=== PATIENT | male | born 1970 | race Caucasian/White ===

== ENCOUNTER → 2017-12-26 | Outpatient (CLI) | payer OTHER | LOC: M RAD 08:00 | DX: M54.2 Cervicalgia (principal) ==

== ENCOUNTER → 2019-12-26 | Outpatient (CLI) | payer OTHER ==
--- NOTE | 2019-12-27 01:36 | REP ---
Clinical: Cervical Technique: AP and lateral views of the cervical spine. Findings: Anterior fixation spans C4 - C7. Alignment is maintained. Mild degenerative changes at C3-4 with subtle endplate sclerosis and minimal marginal spurring. No acute fracture / compression injury or subluxation. Prevertebral soft tissues are normal. Impression: Anterior fixation. Minimal degenerative changes. Electronically Signed by Thomas Cowan MD 12/27/2019 01:27 A
== END ==
LOC: M WUC 09:55
PROVIDERS: ATTEND Physician Assistant
DX: M54.2 Cervicalgia (principal)

== ENCOUNTER 2020-07-28 09:59 | Emergency (ER) | payer OTHER, SELFPAY ==
[~2020-07-28] VITALS: Ht 175.3 cm; Wt 80.5 kg
[2020-07-28] MEDS ORDERED: METOCLOPRAMIDE 10 MG TAB PO ONE (11:00)
[2020-07-28] MEDS ORDERED: ACETAMINOPHEN 500 MG TAB PO ONE (11:00)
--- NOTE | 2020-07-28 11:11 | REP ---
INDICATION: fall, headache COMPARISON: None. TECHNIQUE: Axial noncontrast images from the skull base to the vertex with coronal reformations. This CT examination was performed using the following dose reduction techniques: Automated exposure control, adjustment of mA and/or kv according to the patient's size, and use of iterative reconstruction technique. FINDINGS: The ventricles, sulci, and cisterns are normal in position and appearance. Romero-white differentiation is maintained. No acute intracranial hemorrhage, mass/mass effect, pathology or trauma/injury. No evidence for acute infarction. No extra-axial fluid collection. Calvarium is intact. Mucoperiosteal changes involving the bilateral maxillary ethmoid and sphenoid sinuses suggests acute/chronic sinusitis. IMPRESSION: No evidence for acute intracranial pathology or trauma/injury. Sinusitis <Electronically signed by Thomas Cowan > 07/28/20 110
--- NOTE | 2020-07-28 11:12 | REP ---
INDICATION: fall, low back pain down into left leg. COMPARISON: None. TECHNIQUE: Axial noncontrast images of the lumbosacral spine from mid T12 through mid sacrum with coronal and sagittal reformations. This CT examination was performed using the following dose reduction techniques: Automated exposure control, adjustment of mA and/or kv according to the patient's size, and use of iterative reconstruction technique. FINDINGS: Alignment and lordosis maintained. Vertebral bodies are intact. Posterior elements and spinous processes are intact. There is no evidence for acute fracture/compression injury or subluxation. The spinal canal is patent. The paravertebral soft tissues are normal. Mild age-related degenerative changes noted. IMPRESSION: Age-appropriate lumbosacral spine CT. No evidence for acute fracture/compression injury or subluxation. <Electronically signed by Thomas Cowan > 07/28/20 1100
--- NOTE | 2020-07-28 11:14 | REP ---
INDICATION: fall, headache COMPARISON: 12/26/2019 TECHNIQUE: Axial noncontrast images from the skull base to the thoracic inlet with coronal and sagittal re-formations This CT examination was performed using the following dose reduction techniques: Automated exposure control, adjustment of mA and/or kv according to the patient's size, and use of iterative reconstruction technique. FINDINGS: Patient is noted to be status post anterior fixation at C4-C7. Alignment is maintained. There is no evidence for acute fracture/compression injury or subluxation. Moderate/early advanced multilevel degenerative changes include osteophytosis, endplate sclerosis and disc space narrowing at the C2-3, C3-4, and C7-T1 levels. Moderate facet arthropathy is also identified. Spinal canal appears patent. Paravertebral soft tissues are within normal limits. IMPRESSION: 1. Prior fixation at C4-C7. 2. No evidence for acute fracture/compression injury or subluxation. <Electronically signed by Thomas Cowan > 07/28/20 [id number]
[2020-07-28] MEDS ORDERED: MORPHINE 4 MG/ML 1ML VIAL/SYRINGE (J2270) IV ONE (11:30)
[2020-07-28] MEDS ORDERED: diazePAM 10MG/2ML SYRINGE (J3360 PER 5MG) IM ONE (11:30)
[2020-07-28] MEDS ORDERED: MORPHINE 4 MG/ML 1ML VIAL/SYRINGE (J2270) IM ONE (11:30)
[2020-07-28] MEDS ORDERED: ROBA750T4 PO (12:25)
[2020-07-28] MEDS ORDERED: NAPR-837 PO (12:25)
[2020-07-28 12:36] VITALS: BP 114/59
== END 2020-07-28 12:45 | disposition home or self-care (01) ==
LOC: M ED 09:59 → EDBD 09:59 → M ED 12:45
DX: S09.90XA Unspecified injury of head, initial encounter (principal); S30.0XXA Contusion of lower back and pelvis, initial encounter; W19.XXXA Unspecified fall, initial encounter; Y92.89 Other specified places as the place of occurrence of the external cause; Y93.9 Activity, unspecified; Y99.0 Civilian activity done for income or pay; E78.5 Hyperlipidemia, unspecified; M54.30 Sciatica, unspecified side; M43.22 Fusion of spine, cervical region; M25.78 Osteophyte, vertebrae; M50.322 Other cervical disc degeneration at C5-C6 level; M12.88 Other specific arthropathies, not elsewhere classified, other specified site; J01.90 Acute sinusitis, unspecified; Z88.0 Allergy status to penicillin
CPT/HCPCS: 70450; 72125; 72131; 96372; 99284; J2270; J3360

== ENCOUNTER → 2021-06-29 | Outpatient (CLI) | payer OTHER ==
[~2021-06-29] MED LIST: ISOVUE-370 76% 100ML VIAL As Ordered ONE; NAPR-837 PO; ROBA750T4 PO
--- NOTE | 2021-06-29 09:06 | REP ---
INDICATION: GROSS HEMATURIA UROGRAM. COMPARISON: None TECHNIQUE: Axial precontrast, contrast-enhanced and delayed images from the lung bases to the pubic symphysis using 100 cc Isovue 370 intravenous contrast material. Coronal and sagittal reformations obtained. This CT examination was performed using the following dose reduction techniques: Automated exposure control, adjustment of mA and/or kv according to the patient's size, and the use of iterative reconstruction technique. FINDINGS: Evaluation of the urinary tract system demonstrates 1.3 cm benign left lower pole renal cyst. No hydroureteronephrosis, nephroureterolithiasis or mass lesion appreciated. Collecting system including bladder appears normal. Liver, spleen, pancreas, gallbladder, and bilateral adrenal glands are normal. The enteric system including stomach, small, and large bowel appears normal. No evidence for obstruction or acute inflammatory process. Normal terminal ileum and cecum are identified in the right lower quadrant. Few scattered sigmoid diverticula noted without acute diverticulitis. Pelvis demonstrates normal bladder and age-appropriate prostate/seminal vesicles. No ascites. No free air. No intraperitoneal or retroperitoneal adenopathy. Abdominal aorta and vasculature appear normal. Musculoskeletal structures are intact and without acute osseous abnormality. IMPRESSION: 1. 1.3 cm benign left renal cyst. Otherwise normal urinary tract system. 2. No acute abdominopelvic pathology appreciated. <Electronically signed by Thomas Cowan > 06/29/21 [id number]
== END ==
LOC: M RAD 07:40
DX: N28.1 Cyst of kidney, acquired (principal)
CPT/HCPCS: 74178; Q9967

== ENCOUNTER → 2021-10-13 | Outpatient (REF) | payer OTHER ==
[~2021-10-13] MED LIST changes: -ISOVUE-370 76% 100ML VIAL As Ordered ONE
[2021-10-13 17:27] LABS: APPEARANCE, URINE CLEAR (CLEAR); BACTERIA, URINE AUTO NEGATIVE (NEGATIVE); BILIRUBIN, URINE AUTO NEGATIVE (NEGATIVE); BLOOD, URINE BLOOD NEGATIVE (NEGATIVE); COLOR, URINE YELLOW (YELLOW); GLUCOSE, URINE (UA) AUTO NEGATIVE (NEGATIVE); KETONE, URINE AUTO NEGATIVE (NEGATIVE); LEUKOCYTE ESTERASE, URINE AUTO NEGATIVE (NEGATIVE); MUCUS, URINE SMALL (NEGATIVE); NITRITE, URINE AUTO NEGATIVE (NEGATIVE); PROTEIN, URINE AUTO NEGATIVE (NEGATIVE); RBC, URINE AUTO 0 /HPF (0-3); SPECIFIC GRAVITY URINE AUTO 1.024 (1.002-1.035); SQUAMOUS EPITHELIAL CELL UR AU 0 /HPF (0-6); WBC, URINE AUTO 0 /HPF (0-3)
== END ==
LOC: M SMT 16:43
PROVIDERS: ATTEND Physician Assistant
DX: R31.0 Gross hematuria (principal)

== ENCOUNTER → 2021-11-05 | Outpatient (CLI) | payer OTHER ==
[~2021-11-05] MED LIST changes: +ASPI81TA26 PO; +GABA-1171 PO; +HYDR-3490 PO; +LISI20TA33 PO; +RA M10TA PO
== END ==
LOC: M LABSMTC 09:08
PROVIDERS: ATTEND Anesthesiology
DX: Z01.812 Encounter for preprocedural laboratory examination (principal); Z20.822 Contact with and (suspected) exposure to COVID-19

== ENCOUNTER 2021-11-10 12:16 | Day surgery (SDC) | payer OTHER ==
[~2021-11-10] VITALS: Ht 165.1 cm; Wt 81.6 kg
[~2021-11-10 12:16] MED LIST changes: +NS 1,000 ML IV ONE
[2021-11-10] MEDS ORDERED: propofoL 200 MG/20 ML VIAL As Ordered ONE ×2 (15:04→15:06)
[2021-11-10] MEDS ORDERED: LIDOCAINE 2% 100MG/5ML SDV (FOR ANES.) As Ordered ONE (15:04)
[2021-11-10 16:00] VITALS: BP 127/73
== END 2021-11-10 16:07 | disposition home or self-care (01) ==
LOC: M OPP 12:16
PROVIDERS: ATTEND Internal Medicine Gastroenterology
DX: Z12.11 Encounter for screening for malignant neoplasm of colon (principal); K64.0 First degree hemorrhoids; Z79.82 Long term (current) use of aspirin; Z79.899 Other long term (current) drug therapy; Z88.0 Allergy status to penicillin

== ENCOUNTER → 2022-01-25 | Outpatient (CLI) | payer OTHER ==
[~2022-01-25] MED LIST changes: -NS 1,000 ML IV ONE
== END ==
LOC: M SLEEP 13:22
PROVIDERS: ATTEND Nurse Practitioner Primary Care
DX: G47.33 Obstructive sleep apnea (adult) (pediatric) (principal)

== ENCOUNTER → 2022-11-08 | Outpatient (CLI) | payer OTHER | LOC: M SLEEP 20:00 | DX: G47.30 Sleep apnea, unspecified (principal) ==

== ENCOUNTER 2023-02-11 09:26 | Emergency (ER) | payer OTHER ==
[~2023-02-11] VITALS: Ht 165.1 cm; Wt 81.8 kg
[2023-02-11 09:26] VITALS: BP 158/99; TEMP 98; O2SAT 98
== END 2023-02-11 10:17 | disposition left against medical advice (07) ==
LOC: M ED 09:26
DX: Z53.21 Procedure and treatment not carried out due to patient leaving prior to being seen by health care provider (principal)

== ENCOUNTER 2024-01-28 11:01 | Emergency (ER) | payer OTHER ==
[~2024-01-28] VITALS: Ht 172.7 cm; Wt 77.3 kg
[2024-01-28 11:26] LABS: BASO # 0.1 10^3/uL (0.0-0.2); BASO % 0.3 % (0.0-1.0); EOS # 0.2 10^3/uL (0.0-0.5); EOS % 1.6 % (0.0-3.0); HEMATOCRIT 41.9 % (42.0-52.0); HEMOGLOBIN 14.7 g/dl (13.5-17.5); LYMPH # 1.7 10^3/uL (1.5-5.0); LYMPH % 11.3 % (24.0-44.0); MEAN CORPUSCULAR HEMOGLOBIN 28.9 pg (27.0-33.0); MEAN CORPUSCULAR HGB CONC 35.1 g/dl (32.0-36.5); MEAN CORPUSCULAR VOLUME 82.5 fl (80.0-96.0); MONO # 1.2 10^3/uL (0.0-0.8); MONO % 8.1 % (2.0-8.0); NEUTROPHILS % 78.2 % (36.0-66.0); PLATELET COUNT, AUTOMATED 228 10^3/uL (150-450); RED BLOOD COUNT 5.08 10^6/uL (4.30-6.10); WHITE BLOOD COUNT 15.4 10^3/uL (4.0-10.0)
[2024-01-28 11:37] LABS: INR 1.08; PROTHROMBIN TIME 13.7 SECONDS (12.5-14.5)
[2024-01-28 11:48] LABS: LIPASE 29 U/L (12-53)
[2024-01-28 11:51] LABS: ALBUMIN 3.7 G/DL (3.2-5.2); ALKALINE PHOSPHATASE 71 U/L (46-116); ALT/SGPT 21 U/L (7.0-40); AST/SGOT 14 U/L (<34); BILIRUBIN,DIRECT 0.2 MG/DL (<0.4); BILIRUBIN,TOTAL 0.8 MG/DL (0.3-1.2); BLOOD UREA NITROGEN 14 MG/DL (9-23); CALCIUM LEVEL 8.8 MG/DL (8.5-10.1); CARBON DIOXIDE LEVEL 24 MMOL/L (20-31); CHLORIDE LEVEL 105 MMOL/L (98-107); CPK CREATINE PHOSPHOKINASE 60 U/L (46-171); CREATININE FOR GFR 0.86 MG/DL (0.70-1.30); GLOMERULAR FILTRATION RATE > 60.0 (>56); GLUCOSE, FASTING 104 MG/DL (60-100); SODIUM LEVEL 137 MMOL/L (136-145); TOTAL PROTEIN 6.8 G/DL (5.7-8.2)
[2024-01-28 12:09] LABS: CK-MB VALUE MASS < 1.0 NG/ML (<3.6); MB/CK RELATIVE INDEX 1.66 (< OR =4)
[2024-01-28] MEDS ORDERED: ISOVUE-370 76% 100ML VIAL As Ordered ONE (12:31)
[2024-01-28] MEDS: KETOROLAC 30 MG/ML 1ML VIAL IV ONE (12:35)
[2024-01-28] MEDS: ACETAMINOPHEN 325 MG TAB PO ONE (12:35)
[2024-01-28 12:52] LABS: PROCALCITONIN <0.04 ng/ml
[2024-01-28 12:53] LABS: MAGNESIUM LEVEL 1.6 MG/DL (1.8-2.4)
[2024-01-28] MEDS: MAGNESIUM OXIDE 400MG TAB (MAG-OX) PO ONE (14:15)
[2024-01-28 14:31] VITALS: TEMP 99; O2SAT 94
[2024-01-28 14:38] VITALS: BP 118/57
== END 2024-01-28 14:52 | disposition home or self-care (01) ==
LOC: EDBD 11:01 → M ED 11:01
DX: M94.0 Chondrocostal junction syndrome [Tietze] (principal); B34.9 Viral infection, unspecified; I10 Essential (primary) hypertension; E78.5 Hyperlipidemia, unspecified; Z88.0 Allergy status to penicillin; Z79.1 Long term (current) use of non-steroidal anti-inflammatories (NSAID); Z79.899 Other long term (current) drug therapy
CPT/HCPCS: 71045; 71260; 80048; 80076; 82550; 82553; 83605; 83690; 83735; 84145; 84484; 85025; 85610; 87040; 87486; 87581; 87633; 87798; 93005; 93041; 94760; 96374; 99285; J1885; Q9967

== ENCOUNTER → 2024-07-19 | Outpatient (CLI) | payer OTHER | LOC: M SOG 13:31 | PROVIDERS: ATTEND Orthopaedic Surgery | DX: M43.22 Fusion of spine, cervical region (principal) ==

== ENCOUNTER → 2024-08-14 | Outpatient (CLI) | payer OTHER | LOC: M PLAIMG 09:07 | PROVIDERS: ATTEND Orthopaedic Surgery | DX: M25.511 Pain in right shoulder (principal); M75.41 Impingement syndrome of right shoulder; S43.431A Superior glenoid labrum lesion of right shoulder, initial encounter; M75.01 Adhesive capsulitis of right shoulder; M75.80 Other shoulder lesions, unspecified shoulder ==